=== PATIENT | male | born 1950 | race African-American/Black ===

== ENCOUNTER 2017-08-25 05:15 | Day surgery (SDC) | payer MEDICARE, OTHER ==
[~2017-08-25] VITALS: Ht 154.9 cm; Wt 97.5 kg
[~2017-08-25 05:15] MED LIST: ALLO100T PO; ASPI-1159 PO; ATEN-42 PO; BENA40TA3 PO; HYDR-4134 PO; METF10002 PO; TERA2CAP4 PO; TRIA1TAB94 PO
[2017-08-25] MEDS ORDERED: LACTATED RINGERS 1,000 ML IV SCH (06:40)
[2017-08-25] MEDS ORDERED: NORMAL SALINE 0.9% 10 ML SYR ONE (07:23)
[2017-08-25] MEDS ORDERED: GENTAMICIN SULF 40MG/ML 2ML VIAL ONE (07:23)
[2017-08-25] MEDS ORDERED: BUPIVACAINE HCL/PF 0.5% (5MG/ML) 10ML ONE (07:23)
[2017-08-25] MEDS ORDERED: LIDOCAINE HCL 1% 20ML VIAL (Pyxis) INJ ONE (07:23)
[2017-08-25] MEDS ORDERED: BACITRACIN 50,000 UNITS/VIAL ONE (07:24)
[2017-08-25] MEDS ORDERED: MIDAZOLAM HCL 5 MG/5 ML VIAL ONE ×2 (07:45→07:48)
[2017-08-25] MEDS ORDERED: HYDROMORPHONE HCL/PF 2MG/ML (OR) ONE (07:45)
[2017-08-25] MEDS ORDERED: CEFAZOLIN SODIUM 1000MG/VIAL ONE (07:47)
[2017-08-25] MEDS ORDERED: BETAMETHASONE ACET/BETAMET 30 MG/5 ML VIAL IM ONE (08:11)
[2017-08-25] MEDS ORDERED: MEPERIDINE HCL/PF 25MG/ML CPJ IV PRN (14:00)
[2017-08-25] MEDS ORDERED: HYDROMORPHONE HCL/PF 2MG/ML CPJ IV PRN (14:00)
[2017-08-25] MEDS ORDERED: LABETALOL HCL 20MG/4ML CARPUJECT IV PRN (14:00)
[2017-08-25] MEDS ORDERED: ONDANSETRON HCL 4MG/2ML VIAL IV PRN (14:00)
== END 2017-08-25 10:30 | disposition home or self-care (01) ==
LOC: OR 05:15
PROVIDERS: ATTEND Podiatrist Foot & Ankle Surgery
DX: M20.21 Hallux rigidus, right foot (principal); E66.3 Overweight; I10 Essential (primary) hypertension; E11.9 Type 2 diabetes mellitus without complications; M10.9 Gout, unspecified; E78.00 Pure hypercholesterolemia, unspecified; M19.90 Unspecified osteoarthritis, unspecified site; Z98.890 Other specified postprocedural states; Z87.828 Personal history of other (healed) physical injury and trauma
CPT/HCPCS: 28295; 82962; A4216; J0690; J0702; J1170; J2250; J3490; J7120; J1580